=== PATIENT | female | born 1995 | race Caucasian/White ===

== ENCOUNTER 2020-06-12 17:08 | Observation (INO) | payer MEDICAID ==
[~2020-06-12] VITALS: Ht 149.9 cm; Wt 59.4 kg
[2020-06-12] MEDS ORDERED: PNV1TABL50 PO (18:07)
[2020-06-14] MEDS ORDERED: FERR325T6 PO (01:04)
== END 2020-06-12 19:35 | disposition home or self-care (01) ==
LOC: EDBD → 8 EST LDRP 17:08
PROVIDERS: ADMIT Obstetrics & Gynecology; ATTEND Obstetrics & Gynecology
DX: O42.92 Full-term premature rupture of membranes, unspecified as to length of time between rupture and onset of labor (principal); Z3A.38 38 weeks gestation of pregnancy
CPT/HCPCS: 59025; 76815; 76818; G0378